=== PATIENT | male | born 1975 | race Caucasian/White ===

== ENCOUNTER 2020-09-02 12:54 | Emergency (ER) | payer OTHER ==
[2020-09-02 12:58] VITALS: BP 144/98; PULSE 96; RESP 16; TEMP 98
[2020-09-02] MEDS ORDERED: ORPHENADRINE 30 MG/ML 2 ML VIAL IM STA (13:20)
[2020-09-02] MEDS ORDERED: KETOROLAC 15 MG/ML 1 ML VIAL IM STA (13:20)
--- NOTE | 2020-09-02 13:29 | ED ---
Lower Extremity Injury HPI - General Chief Complaint: Extremity Injury, Lower Stated Complaint: L leg pain Source: patient, RN notes reviewed, old records reviewed Mode of arrival: wheelchair Limitations: no limitations - History of Present Illness Initial Comments: 45-year-old well-appearing white male presents to the emergency room with complaints of left knee pain after walking and picking up garbage for 8 hours yesterday. Patient states that the pain is behind his knee and hurts with flexion and palpation. 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 He was treated at [facility] and flown to and heart rate that time. Patient also has a history of hypertension. did not take his medications today. Patient states he did not try any Tylenol or Motrin today. He states he did take an epsom salt bath Yesterday with Relief of the Right Leg but Not the Left. Patient denies any trauma, is not on any chronic steroids, denies any fevers no numbness or tingling. Patient denies any drug use, no history of cancer . MD Complaint: other (Left knee pain since walking over 8 hours yesterday) -: days(s) (1) Injury: Knee: Left (Pain with flexion and behind the left knee) Type of Injury: other (Overuse, walking and picking up items yesterday for over 8 hours) Place: street/outdoors Severity scale (1-10): 10 Worsens With: movement, palpation (Palpation behind the knee) Context: other (Overuse) Associated Symptoms: ambulatory Treatments Prior to Arrival: other (epson salt Bath Yesterday) - Related Data Home Medications Medication Instructions Recorded Confirmed Chlorthalidone 25 mg PO DAILY 09/02/20 09/02/20 Ergocalciferol (Vitamin D2) 1,250 mcg PO Q30D 09/02/20 09/02/20 [Drisdol (50,000 Iu)] Losartan Potassium 100 mg PO DAILY 09/02/20 09/02/20 amLODIPine [Norvasc] 10 mg PO DAILY 09/02/20 09/02/20 hydrALAZINE HCL [Apresoline] 50 mg PO BID 09/02/20 09/02/20 Previous Rx's Medication Instructions Recorded Ibuprofen [Motrin] 600 mg PO Q8HR PRN #30 tab 09/02/20 Allergies Allergy/AdvReac Type Severity Reaction Status Date / Time pseudoephedrine HCl Allergy Swelling Verified 09/02/20 13:37 [[address] [facility]] Review of Systems ROS Statement: Those systems with pertinent positive or pertinent negative responses have been documented in the HPI. ROS Other: All systems not noted in ROS Statement are negative. Past Medical History Past Medical History: COPD, Hypertension History of Any Multi-Drug Resistant Organisms: None Reported Past Surgical History: Orthopedic Surgery Additional Past Surgical History / Comment(s): left leg surgery Past Psychological History: No Psychological Hx Reported Smoking Status: Never smoker Past Alcohol Use History: Occasional Past Drug Use History: None Reported General Exam Limitations: no limitations General appearance: alert, in no apparent distress Head exam: Present: atraumatic, normocephalic, normal inspection Eye exam: Present: normal appearance, PERRL, EOMI. Absent: scleral icterus, conjunctival injection, periorbital swelling ENT exam: Present: normal exam, normal oropharynx, mucous membranes moist Neck exam: Present: normal inspection, full ROM. Absent: tenderness, meningismus, lymphadenopathy Respiratory exam: Present: normal lung sounds bilaterally. Absent: respiratory distress, wheezes, rales, rhonchi, stridor, chest wall tenderness, accessory muscle use, decreased breath sounds Cardiovascular Exam: Present: regular rate, normal rhythm, normal heart sounds. Absent: systolic murmur, diastolic murmur, rubs, gallop, clicks GI/Abdominal exam: Present: soft, normal bowel sounds. Absent: distended, tenderness, guarding, rebound, rigid Extremities exam: Present: normal inspection, full ROM, normal capillary refill. Absent: tenderness, pedal edema, joint swelling, calf tenderness Left Hip exam: Present: normal inspection Upper Leg exam: Present: normal inspection (Lateral thigh scar from previous surgery) Knee exam: Present: normal inspection, tenderness (Tenderness behind the knee with no swelling), pain/laxity with valgus, pain/laxity with varus, full knee extension. Absent: swelling, abrasion, laceration, ecchymosis, deformity, crepitus, dislocation, erythema, effusion Lower Leg exam: Present: normal inspection. Absent: tenderness, swelling Ankle exam: Present: normal inspection, full ROM. Absent: tenderness Foot/Toe exam: Present: normal inspection, full ROM. Absent: tenderness Neurovascular tendon exam: Present: no vascular compromise, pulse deficit. Absent: abnormal cap refill, motor deficit, sensory deficit, tendon deficit, extremity cold to touch, pallor, foot drop Back exam: Present: normal inspection, full ROM. Absent: tenderness, CVA tenderness (R), CVA tenderness (L), muscle spasm, paraspinal tenderness, vertebral tenderness, rash noted Neurological exam: Present: alert, oriented X3, CN II-XII intact Psychiatric exam: Present: normal affect, normal mood Skin exam: Present: warm, dry, intact, normal color. Absent: rash, cyanosis, diaphoretic, erythema, petechiae, pallor, mottled Course Vital Signs 09/02/20 12:56 Temperature 98 F Pulse Rate 96 Respiratory 16 Rate Blood Pressure 144/98 O2 Sat by Pulse 100 Oximetry Medical Decision Making - Medical Decision Making Patient received relief from Norflex and Toradol is able to ambulate in room with minimal discomfort in his left knee. Patient denies fever. There is no lower extremity swelling noted. Pedal pulses are present and equal bilaterally. There is no palpable Amaya's cyst or lesion behind knee. Patient denies trauma states this started at the end of his shift yesterday after walking for 8 hours. There is no erythema or trauma noted to the knee or lower leg. Patient does have a significant surgical history of the left leg at age 19 hardware in his thigh and lower leg.. He believes that this is directly related to his excessive walking yesterday. Patient will follow up with his primary care doctor and return to the emergency room with worsening symptoms including fever, increased pain or swelling. Patient is agreeable to this plan of care. Case discussed with Dr. Ortiz Disposition Clinical Impression: Knee pain, left Disposition: HOME SELF-CARE Condition: Fair Instructions (If sedation given, give patient instructions): Knee Pain (ED) Additional Instructions: Return to the emergency room with worsening symptoms, including fever, swelling, inability to bear weight. Follow-up with the primary care doctor next week. Take Motrin every 6-8 hours for pain, rest, ice, elevate. Prescriptions: Ibuprofen [Motrin] 600 mg PO Q8HR PRN #30 tab PRN Reason: Pain Is patient prescribed a controlled substance at d/c from ED?: No Referrals: Bao Cary MD [Primary Care Provider] - 1-2 days Time of Disposition: 14:26
[2020-09-02] MEDS ORDERED: ACET/COD 300 MG/30 MG STARTER PACK 6 TAB BTL PO STA (14:26)
== END 2020-09-02 14:34 | disposition home or self-care (01) ==
LOC: EC 12:54
DX: M25.562 Pain in left knee (principal); I10 Essential (primary) hypertension; J44.9 Chronic obstructive pulmonary disease, unspecified; Z79.899 Other long term (current) drug therapy; Z79.1 Long term (current) use of non-steroidal anti-inflammatories (NSAID)
CPT/HCPCS: 96372 ×3; 99283 ×2; J2360; J1885

== ENCOUNTER 2021-06-28 09:48 | Inpatient (IN) | payer OTHER ==
[2021-06-28] MEDS ORDERED: hydrALAZINE HCL 20 MG/ML 1 ML VIAL IVP STA (10:42)
[2021-06-28 10:53] LABS: Basophils # (A) 0.1 k/uL (0-0.2); Basophils % (A) 1 %; Eosinophils # (A) 0.1 k/uL (0-0.7); Eosinophils % (A) 2 %; HCT 45.8 % (39.0-53.0); Lymphocytes # (A) 1.2 k/uL (1.0-4.8); Lymphocytes % (A) 15 %; MCH 30.4 pg (25.0-35.0); MCHC 32.8 g/dL (31.0-37.0); MCV 92.6 fL (80.0-100.0); Mean Platelet Volume 7.1; Monocytes # (A) 0.7 k/uL (0-1.0); Monocytes % (A) 9 %; Neutrophils % (A) 73 %; Platelet Count 285 k/uL (150-450); RBC 4.95 m/uL (4.30-5.90); RDW 11.4 % (11.5-15.5); WBC 8.2 k/uL (3.8-10.6)
--- NOTE | 2021-06-28 10:55 | XR ---
EXAMINATION TYPE: XR chest 2V DATE OF EXAM: 06/28/2021 COMPARISON: Chest x-ray July 24, 2014 HISTORY: Chest pain. TECHNIQUE: Frontal and lateral views of the chest are obtained. FINDINGS: There is no focal air space opacity, pleural effusion, or pneumothorax seen. The cardiac silhouette size is within normal limits. The osseous structures are intact. IMPRESSION: No acute process. No significant change from prior.
--- NOTE | 2021-06-28 11:04 | ED ---
Chest Pain HPI - General Chief Complaint: Chest Pain Stated Complaint: Chest pain Time Seen by Provider: 06/28/21 10:35 Source: patient Mode of arrival: ambulatory Limitations: no limitations - History of Present Illness Initial Comments: Patient is a 45-year-old male with a past medical history of hypertension and COPD who presents to the emergency department with a chief complaint of chest pain. Patient states he had 2 episodes of chest pain while driving to work this morning. The chest pain is left-sided and he describes it as feeling like a "ga s bubble". There is no radiation to the arms or jaw. Patient states the chest pain was associated with nausea and one episode of vomiting. He currently denies chest pain and nausea. Patient denies shortness of breath, palpitations, dizziness, and abdominal pain. Patient states he has felt this chest pain before when his blood pressure is high. Patient states he is noncompliant with his blood pressure medication and has not taken them in over 6 months. He states he does not take them because they were not working for his blood pressure. Patient denies a history of high cholesterol, diabetes, stroke, and family history of heart disease. He denies current tobacco use and states he uses alcohol occasionally. Patient states he drinks 2 cups of coffee each morning. - Related Data Home Medications Medication Instructions Recorded Confirmed Chlorthalidone 25 mg PO DAILY 09/02/20 09/02/20 Ergocalciferol (Vitamin D2) 1,250 mcg PO Q30D 09/02/20 09/02/20 [Drisdol (50,000 Iu)] Losartan Potassium 100 mg PO DAILY 09/02/20 09/02/20 amLODIPine [Norvasc] 10 mg PO DAILY 09/02/20 09/02/20 hydrALAZINE HCL [Apresoline] 50 mg PO BID 09/02/20 09/02/20 Previous Rx's Medication Instructions Recorded Ibuprofen [Motrin] 600 mg PO Q8HR PRN #30 tab 09/02/20 Allergies Allergy/AdvReac Type Severity Reaction Status Date / Time pseudoephedrine HCl Allergy Swelling Verified 06/28/21 09:59 [From [facility]] Review of Systems ROS Statement: Those systems with pertinent positive or pertinent negative responses have been documented in the HPI. ROS Other: All systems not noted in ROS Statement are negative. EKG Findings - EKG Comments: EKG Findings:: EKG taken at 10:04. Sinus rhythm. Ventricular rate 94. SC interval 161. QRS duration 97. QTC 399 Past Medical History Past Medical History: COPD, Hypertension History of Any Multi-Drug Resistant Organisms: None Reported Past Surgical History: Orthopedic Surgery Additional Past Surgical History / Comment(s): left leg surgery Past Psychological History: No Psychological Hx Reported Smoking Status: Never smoker Past Alcohol Use History: Occasional Past Drug Use History: None Reported General Exam Limitations: no limitations General appearance: alert, in no apparent distress Head exam: Present: atraumatic, normocephalic, normal inspection Eye exam: Present: normal appearance, PERRL, EOMI. Absent: scleral icterus, conjunctival injection, periorbital swelling Neck exam: Present: full ROM Respiratory exam: Present: normal lung sounds bilaterally. Absent: respiratory distress, wheezes, rales, rhonchi, stridor Cardiovascular Exam: Present: regular rate, normal rhythm, normal heart sounds. Absent: systolic murmur, diastolic murmur, rubs, gallop, clicks GI/Abdominal exam: Present: soft, normal bowel sounds. Absent: distended, tenderness, guarding, rebound, rigid Back exam: Present: normal inspection Neurological exam: Present: alert, oriented X3, CN II-XII intact Psychiatric exam: Present: normal affect, normal mood Skin exam: Present: warm, dry, intact, normal color. Absent: rash Course Vital Signs 06/28/21 09:55 Temperature 97.1 F L Pulse Rate 80 Respiratory 18 Rate Blood Pressure 198/120 O2 Sat by Pulse 100 Oximetry Chest Pain MDM - MDM This is a 45-year-old male who presents with 2 episodes of chest pain this morn ing. Thorough history and examination were performed. Blood pressure is 198/120. Patient is well-appearing and in no apparent distress. Patient currently has no symptoms including chest pain, shortness of breath, and nausea. EKG shows sinus rhythm with ST depression in lead III. Repeat blood pressure was 177/111. Patient given oral dose of amlodipine. Troponin is 0.428. Aspirin and heparin were initiated. Case discussed with Dr. Cary. Patient will be admitted to his service with cardiology consult. Results discussed patient who verbalizes understanding and is agreeable to this plan. Dr. Mcmillan is my attending. Critical Care Time Critical Care Time: Yes Total Critical Care Time: 32 Disposition Clinical Impression: NSTEMI (non-ST elevated myocardial infarction) Disposition: ADMITTED IP TO THIS HOSP Condition: Fair Referrals: Bao Cary MD [Primary Care Provider] - 1-2 days Decision Time: 12:31
[2021-06-28 11:09] LABS: ALT 27 U/L (4-49); AST 26 U/L (17-59); African American GFR (CKD) >90 (>60 ml/min/1.73 sqM); Albumin 4.5 g/dL (3.5-5.0); Alkaline Phosphatase 70 U/L (38-126); Anion Gap 12 mmol/L; Blood Urea Nitrogen 9 mg/dL (9-20); Calcium 8.9 mg/dL (8.4-10.2); Carbon Dioxide 25 mmol/L (22-30); Chloride 97 mmol/L (98-107); Glucose 131 mg/dL (74-99); Magnesium 2.2 mg/dL (1.6-2.3); Non-African American GFR(CKD) >90 (>60 ml/min/1.73 sqM); Partial Thromboplastin Time 27.3 sec (22.0-30.0); Potassium 3.7 mmol/L (3.5-5.1); Prothrombin Time 10.8 sec (9.0-12.0); Sodium 134 mmol/L (137-145); Total Bilirubin 1.1 mg/dL (0.2-1.3)
[2021-06-28] MEDS ORDERED: amLODIPine 10 MG TAB PO STA (11:19)
[2021-06-28] MEDS ORDERED: ASPIRIN 325 MG TAB PO STA (11:39)
[2021-06-28] MEDS ORDERED: HEPARIN SODIUM 1,000 UN/ML (10ML VL) IV PRN (11:45)
[2021-06-28] MEDS ORDERED: HEPARIN SODIUM 1,000 UN/ML (10ML VL) IV ONE (11:45)
[2021-06-28] MEDS: HEPARIN SOD,PORK IN 0.45% NACL 25,000 UNIT in 0.45% NACL 1 250ML.BAG IV SCH (12:12)
[2021-06-28] MEDS ORDERED: NALOXONE 0.4 MG/ML 1 ML VIAL IV PRN (12:27)
[2021-06-28] MEDS ORDERED: NITROGLYCERIN SL TABS 0.4 MG TAB SUBLINGUAL STA (13:46)
[2021-06-28] MEDS: METOPROLOL TARTRATE 50 MG TAB PO SCH ×2 (13:52→20:10)
--- NOTE | 2021-06-28 14:02 | P.CRDCN ---
History of Present Illness History of present illness: HISTORY OF PRESENTING ILLNESS This is a pleasant 45-year-old male past medical history significant for hypertension COPD. 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 We have been asked to see in consultation for chest pain and elevated troponin. Presents emergency department with complaints of chest pain. Patient began to have chest pain this morning getting up for work. 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 He had 2more episodes of chest pain while driving to work and decided to get evaluated. The chest pain is left-sided and he describes it as feeling like a "gas bubble". He denies radiation. It is non-exertional. He did have associated nausea and one episode of vomiting. He currently denies chest pain and nausea. Patient denies shortness of breath, palpitations, dizziness, lightheadedness and abdominal pain. Patient states he is noncompliant with his blood pressure medication and has not taken them in over 6 months. He stopped going to see his PCP Dr. Cary. Patient denies a history of high cholesterol, CAD, [place], Stroke or Diabetes. Denies family history of heart disease. He denies current tobacco use and states he uses alcohol occasionally. DIAGNOSTICS EKG reveals Sinus rhythm HR 94, ST depression in lead III, LVH, ST-T wave abnormalities in leads I and aVL. No prior EKG to compare Chest xray no acute cardiopulmonary process Laboratory reviewed, CBC unremarkable, initial troponin 0.42, sodium 134, potassium 3.7, BUN 9, serum creatinine 0.94, magnesium 2.2 Current home medications include none. Patient stopped taking all his cardiac medications. REVIEW OF SYSTEMS At the time of my exam: CONSTITUTIONAL: Denies fever or chills. CARDIOVASCULAR: Denies chest pain, shortness of breath, orthopnea, PND or palpitations. RESPIRATORY: Denies cough. GASTROINTESTINAL: Denies abdominal pain, diarrhea, constipation, nausea or vomiting. MUSCULOSKELETAL: Denies myalgias. NEUROLOGIC: Denies numbness, tingling, headache or weakness. ENDOCRINE: Denies fatigue, weight change, polydipsia or polyurina. GENITOURINARY: Denies burning, hematuria or urgency with micturation. HEMATOLOGIC: Denies history of anemia or bleeding. PHYSICAL EXAMINATION Blood pressure 170/116, heart rate 92, afebrile. Saturations 100% on room air CONSTITUTIONAL: No apparent distress. HEENT: Head is normocephalic. Pupils are equal, round. Sclerae anicteric. Mucous membranes of the mouth are moist. No JVD. No carotid bruit. CHEST EXAMINATION: Lungs are clear to auscultation. No chest wall tenderness is noted on palpation or with deep breathing. HEART EXAMINATION: Regular rate and rhythm. S1, S2 heard. No murmurs, gallops or rub. ABDOMEN: Soft, nontender. Positive bowel sounds. EXTREMITIES: 2+ peripheral pulses, no lower extremity edema and no calf tenderness. SKIN: warm, dry NEUROLOGIC EXAMINATION: Patient is awake, alert and oriented x3. ASSESSMENT Chest pain Elevated troponin, rule out acute coronary syndrome Uncontrolled hypertension History of hypertension History of COPD PLAN IV heparin Sublinqual nitro and apply nitro paste Trend troponins Repeat EKG Obtain 2D echocardiogram and doppler study to assess cardiac structure and function. Echo reviewed at bedside by Dr. Bird no wall motion abnormalities, will await full report. Lipid panel Aspirin, statin Metoprolol tartrate 50mg BID NPO after midnight pending above workup. Thank you kindly for this consultation. Nurse practitioner note has been reviewed by physician. Signing provider agrees with the documented findings, assessment, and plan of care. Past Medical History Past Medical History: COPD, Hypertension History of Any Multi-Drug Resistant Organisms: None Reported Past Surgical History: Orthopedic Surgery Additional Past Surgical History / Comment(s): left leg surgery Past Psychological History: No Psychological Hx Reported Smoking Status: Never smoker Past Alcohol Use History: Occasional Past Drug Use History: None Reported - Past Family History Father Family Medical History: COPD Additional Family Medical History / Comment(s): Double lung tranplant Mother Family Medical History: No Reported History Additional Family Medical History / Comment(s): Mother is healthy Medications and Allergies Home Medications Medication Instructions Recorded Confirmed Type No Known Home Medications 06/28/21 06/28/21 History Allergies Allergy/AdvReac Type Severity Reaction Status Date / Time pseudoephedrine HCl Allergy Rash/Hives Verified 06/28/21 13:02 [From Sudafed] ABDI Inhibitors AdvReac Cough Verified 06/28/21 13:02 Physical Exam Vitals: Vital Signs Temp Pulse Resp BP Pulse Ox 06/28/21 12:15 92 18 178/116 100 06/28/21 09:55 97.1 F L 80 18 198/120 100 Intake and Output 06/27/21 06/28/2122 22:59 06:59 14:59 Other: Weight 79.379 kg Results 06/28/21 10:41 06/28/21 10:41 Cardiac Enzymes 06/28/21 06/28/21 Range/Units 10:41 10:41 AST 26 (17-59) U/L Troponin I 0.428 H* (0.000-0.034) ng/mL Coagulation 06/28/21 Range/Units 10:41 PT 10.8 (9.0-12.0) sec APTT 27.3 (22.0-30.0) sec CBC 06/28/21 Range/Units 10:41 WBC 8.2 (3.8-10.6) k/uL RBC 4.95 (4.30-5.90) m/uL Hgb 15.0 (13.0-17.5) gm/dL Hct 45.8 (39.0-53.0) % Plt Count 285 (150-450) k/uL Comprehensive Metabolic Panel 06/28/21 Range/Units 10:41 Sodium 134 L (137-145) mmol/L Potassium 3.7 (3.5-5.1) mmol/L Chloride 97 L (98-107) mmol/L Carbon Dioxide 25 (22-30) mmol/L BUN 9 (9-20) mg/dL Creatinine 0.94 (0.66-1.25) mg/dL Glucose 131 H (74-99) mg/dL Calcium 8.9 (8.4-10.2) mg/dL AST 26 (17-59) U/L ALT 27 (4-49) U/L Alkaline Phosphatase 70 (38-126) U/L Total Protein 8.0 (6.3-8.2) g/dL Albumin 4.5 (3.5-5.0) g/dL Current Medications Generic Name Dose Route Start Last Admin Trade Name Freq PRN Reason Stop Dose Admin Heparin Sodium (Porcine) 0 unit 06/28/21 11:45 Heparin Sodium 1,000 Un/Ml (10ml Vl) IV PER PROTOCOL PRN Low PTT Protocol Heparin Sodium/Sodium Chloride 250 mls @ 9.525 mls/hr 06/28/21 11:45 06/28/21 12:12 25,000 unit/ Sodium Chloride IV 12 units/kg/hr .Q24H LISA 9.525 mls/hr Administration Protocol 12 UNITS/KG/HR Naloxone HCl 0.2 mg 06/28/21 12:27 Naloxone 0.4 Mg/Ml 1 Ml Vial IV Q2M PRN Opioid Reversal Intake and Output 06/27/21 06/28/21 06/28/21 22:59 06:59 14:59 Other: Weight 79.379 kg Patient Weight 06/29/21 06:59 Weight 79.379 kg 06/28/21 10:41 06/28/21 10:41
[2021-06-28] MEDS: NITROGLYCERIN OINT 1 INCH/GM PACKET TOPICAL SCH ×3 (14:25→23:18)
[2021-06-28] MEDS ORDERED: ACETAMINOPHEN TAB 325 MG TAB PO PRN (17:17)
--- NOTE | 2021-06-28 18:14 | ECHOF ---
Referral Reason:chest pain, elevated troponin MEASUREMENTS -------- HEIGHT: 177.8 cm WEIGHT: 79.4 kg BP: 153/112 RVIDd: 2.7 cm (< 3.3) IVSd: 1.2 cm (0.6 - 1.1) LVIDd: 4.2 cm (3.9 - 5.3) LVPWd: 1.2 cm (0.6 - 1.1) IVSs: 1.8 cm LVIDs: 2.8 cm LVPWs: 1.6 cm LA Diam: 2.7 cm (2.7 - 3.8) LAESV Index (A-L): 16.54 ml/m Ao Diam: 3.6 cm (2.0 - 3.7) AV Cusp: 2.1 cm (1.5 - 2.6) MV EXCURSION: 12.755 mm (> 18.000) MV EF SLOPE: 49 mm/s (70 - 150) EPSS: 0.8 cm MV E Heraclio: 0.68 m/s MV DecT: 205 ms MV A Heraclio: 0.96 m/s MV E/A Ratio: 0.71 FINDINGS -------- Sinus rhythm. This was a technically adequate study. The left ventricular size is normal. There is borderline concentric left ventricular hypertrophy. Overall left ventricular systolic function is normal with, an EF between 55 - 60 %. The right ventricle is normal in size. Normal LA size by volume 22+/-6 ml/m2. The right atrial size is normal. Interatrial and interventricular septum intact. The aortic valve is trileaflet, and appears structurally normal. No aortic stenosis or regurgitation. The mitral valve is normal. Mild mitral regurgitation is present. The tricuspid valve appears structurally normal. Mild tricuspid regurgitation present. Unable to estimate RVSP due to inadequate TR jet spectral doppler profile. There is no pulmonic regurgitation present. The aortic root size is normal. Normal inferior vena cava with normal inspiratory collapse consistent with estimated right atrial pre ssure of 5 mmHg. There is no pericardial effusion. CONCLUSIONS -------- 1. There is borderline concentric left ventricular hypertrophy. 2. Overall left ventricular systolic function is normal with, an EF between 55 - 60 %. 3. Normal LA size by volume 22+/-6 ml/m2. 4. The aortic valve is trileaflet, and appears structurally normal. No aortic stenosis or regurgitati on. 5. Mild mitral regurgitation is present. 6. Mild tricuspid regurgitation present. 7. There is no pericardial effusion. MACHINE OPERATOR HOP WORKER: Catarina Swanson RDCS
[2021-06-28 22:58] LABS: LDL Cholesterol,Calculated 108.1 mg/dL (0.0-131.0); VLDL Calculation 11.06 mg/dL (5.00-40.00)
[2021-06-29] MEDS: NITROGLYCERIN OINT 1 INCH/GM PACKET TOPICAL SCH ×4 (06:53→23:39)
[2021-06-29] MEDS: METOPROLOL TARTRATE 50 MG TAB PO SCH ×2 (08:23→21:51)
[2021-06-29] MEDS: ASPIRIN 81 MG PO SCH (08:23)
[2021-06-29] MEDS: ATORVASTATIN 40 MG TAB PO SCH (08:23)
[2021-06-29 08:37] LABS: Basophils % (A) 0 %; Eosinophils % (A) 1 %; HCT 46.3 % (39.0-53.0); HGB 15.3 gm/dL (13.0-17.5); Lymphocytes # (A) 1.4 k/uL (1.0-4.8); Lymphocytes % (A) 16 %; MCH 31.7 pg (25.0-35.0); MCHC 33.1 g/dL (31.0-37.0); MCV 95.5 fL (80.0-100.0); Mean Platelet Volume 7.1; Monocytes # (A) 0.5 k/uL (0-1.0); Monocytes % (A) 6 %; Neutrophils # (A) 6.5 k/uL (1.3-7.7); Neutrophils % (A) 76 %; Platelet Count 325 k/uL (150-450); RBC 4.84 m/uL (4.30-5.90); RDW 11.5 % (11.5-15.5); WBC 8.6 k/uL (3.8-10.6)
[2021-06-29 08:51] LABS: African American GFR (CKD) >90 (>60 ml/min/1.73 sqM); Anion Gap 13 mmol/L; Blood Urea Nitrogen 11 mg/dL (9-20); Calcium 9.3 mg/dL (8.4-10.2); Carbon Dioxide 25 mmol/L (22-30); Chloride 98 mmol/L (98-107); Glucose 91 mg/dL (74-99); Non-African American GFR(CKD) >90 (>60 ml/min/1.73 sqM); Potassium 3.7 mmol/L (3.5-5.1); Sodium 136 mmol/L (137-145)
[2021-06-29 08:58] LABS: Partial Thromboplastin Time 31.2 sec (22.0-30.0); Prothrombin Time 10.7 sec (9.0-12.0)
[2021-06-29] MEDS ORDERED: ATORVASTATIN 80 MG TAB PO SCH (09:00)
--- NOTE | 2021-06-29 10:20 | PN ---
PROGRESS NOTE Mr. Pelletier had suffered from an acute ici-KS-yrjvditek TX. He is very comfortable. He is pain-free. His EKG today reveals slightly precordial ST-T changes. Troponin has come down. Echo revealed preserved systolic function. Patient is on a heparin drip, beta blockers, aspirin and statins. I am going to perform cardiac catheterization from right radial approach. I explained to the patient and his rationale, risks, benefits and options. They understand all details and wish to proceed with the procedure. MMTRUEL / IJN: [id number] /
[2021-06-29] MEDS: HEPARIN SOD,PORK IN 0.45% NACL 25,000 UNIT in 0.45% NACL 1 250ML.BAG IV SCH (11:56)
[2021-06-29] MEDS ORDERED: HEPARIN SODIUM 1,000 UN/ML (10ML VL) ONE (12:31)
[2021-06-29] MEDS ORDERED: VERAPAMIL 2.5 MG/ML 2 ML AMP ONE (12:31)
[2021-06-29] MEDS ORDERED: LIDOCAINE 1% INJ 10MG/ML (20 ML MDV) ONE (12:31)
[2021-06-29] MEDS ORDERED: MIDAZOLAM 2 MG/2 ML VIAL IV ONE (12:39)
[2021-06-29] MEDS ORDERED: SODIUM CHLORIDE 0.9% 1,000 ML IV ONE (12:39)
[2021-06-29] MEDS ORDERED: LIDOCAINE 1% INJ 10MG/ML (20 ML MDV) SQ ONE (12:41)
[2021-06-29] MEDS ORDERED: fentaNYL (PF) 50 MCG/ML 2 ML AMP ONE (12:42)
[2021-06-29] MEDS ORDERED: fentaNYL (PF) 50 MCG/ML 2 ML AMP IV ONE (12:44)
[2021-06-29] MEDS ORDERED: VERAPAMIL SYRINGE (5 MG/10 ML) INTRAARTER ONE (12:45)
[2021-06-29] MEDS ORDERED: HEPARIN SODIUM 1,000 UN/ML (10ML VL) IV ONE (12:46)
[2021-06-29] MEDS ORDERED: IOPAMIDOL-370 100ML BTL INJ ONE (13:00)
[2021-06-29] MEDS ORDERED: IOPAMIDOL-370 50ML BTL INJ ONE (13:02)
[2021-06-29] MEDS ORDERED: SODIUM CHLORIDE 0.9% 1,000 ML IV SCH (14:15)
--- NOTE | 2021-06-29 17:26 | HP ---
HISTORY AND PHYSICAL CHIEF COMPLAINT: Chest pain. HISTORY OF PRESENT ILLNESS: This is the first known admission for this pleasant 45-year-old white male. He has a history of hypertension. He presented to the emergency room with chest pain with elevated troponin and an unremarkable EKG. He was admitted as an NSTEMI. REVIEW OF SYSTEMS: He has had no syncope, headache, shortness of breath, abdominal pain, vomiting, diarrhea, urinary complaints, nocturia, frequency, incontinence, diabetes, etc. Past medical history, family history, and personal and social histories reveal that he is had a history of hypertension. He is ALLERGIC TO ABDI INHIBITORS AND SUDAFED. He has never smoked and he drinks occasionally. He has been on medications for hypertension in the past, including hydralazine, Cozaar, amlodipine and chlorthalidone. However, when he came into the hospital this time he was on no medications and his blood pressure was elevated at 198/120. PHYSICAL EXAMINATION: Blood pressure 198/120 with a pulse of 88 and regular, respirations of 33, and he is afebrile. In general he appeared to be in no acute distress. Skin was dry. Head, ears, eyes, nose, mouth and throat were normal. Neck veins were not distended. Thyroid was not enlarged. Chest was clear. Cardiac exam demonstrated normal sinus rhythm with no murmurs or extra sounds. Abdomen was soft and nontender without any visceromegaly or masses. Bowel sounds present. Extremities were normal. Neurologically he was intact. He is admitted to the hospital with the diagnoses: 1. Tla-BO-ljkpmnity myocardial infarction. 2. Hypertension. PLAN: 1. Bedrest. 2. IV fluids. 3. Serial EKGs and enzymes. 4. Consult Cardiology. MMODL / IJN: [id number] /
--- NOTE | 2021-06-29 17:29 | PN ---
PROGRESS NOTE DATE OF SERVICE: 06/29/2021 CHIEF COMPLAINT: NSTEMI. 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 REVIEW OF SYSTEMS: He has had no chest pain or headache. He has had no abdominal pain or nausea. PHYSICAL EXAMINATION: His chest is clear. Cardiac exam is normal. Abdomen is soft, nontender. IMPRESSION: 1. Hkm-HC-[id number] myocardial infarction. 2. Hypertension. PLAN: Cardiac cath today. MMODL / IJN: [id number] /
--- NOTE | 2021-06-29 17:44 | CC ---
CARDIAC CATHETERIZATION REPORT DATE OF SERVICE: 06/29/2021 PROCEDURE: Left heart catheterization and coronary angiography. PERFORMED BY: Dr. Gabbie Bird. Moderate conscious sedation time was 25 minutes. Patient was administered Versed. Oxygen saturation and EKG were monitored closely. CLINICAL INFORMATION: Mr. 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 He came into the hospital with chest pain suggestive of angina and also had a mild troponin elevation suggestive of non-ST- elevation MD. Precordial leads revealed mild J-point prominence. Given his presentation and symptomatology, he was advised cardiac cath after due discussion regarding risks, benefits and options. PROCEDURE NOTE: Under local anesthesia and strict aseptic precautions, a 6-Ukrainian introducer was placed in the right radial artery. Using JL3.5 and JR4 catheters I performed coronary angiography, and the same catheter was used to check LV pressures. I then used a Nirmal catheter to just check and see if there was another ectopic right coronary artery. Subsequently the sheath was taken out and TR band applied as per protocol. Saturation in the fingers of the right hand was 96%. Patient tolerated the procedure well without complications. CARDIAC CATHETERIZATION FINDINGS: The left ventricular end-diastolic pressure was 8 to 9 mmHg without any gradient across the aortic valve. CORONARY ANGIOGRAPHY FINDINGS: RIGHT CORONARY ARTERY: Nondominant vessel gives off an acute marginal branch and then continues. After the acute marginal branch there is a 90% stenosis and beyond the stenotic area the caliber of the vessel is quite small and the distribution is also small. The nondominant RCA therefore has a mid 90% lesion with limited amount of myocardium being supplied by it. LEFT MAIN CORONARY ARTERY: Short, patent vessel free of significant disease. It bifurcates into LAD and circumflex. LEFT ANTERIOR DESCENDING CORONARY ARTERY: Good-caliber vessel extends along the anterior wall, gives off septal and diagonal branches, runs all the way to the apex, has no significant disease. Only minor irregularities were noted. LEFT POSTERIOR CIRCUMFLEX CORONARY ARTERY: Technically a dominant vessel. It gives off a first obtuse marginal and distally bifurcates into PDA and PLV, both of which supply a fair amount of myocardium. No significant disease noted. LEFT VENTRICULOGRAM: Left ventriculogram was not performed. FINAL IMPRESSION: This patient has a left-dominant system. There is a 90% mid RCA stenosis and this is a small nondominant RCA and I believe this is the culprit lesion. The left system and left main are free of significant disease. Filling pressures are normal. RECOMMENDATIONS: Findings were discussed with the patient and his . I am recommending that we will pursue medical therapy with risk factor modification. Advised to be compliant with medications. I will discharge him tomorrow and follow up in the office. No intervention is necessary, and the nondominant RCA stenosis will be treated medically. Discussed with the patient and his . MMODL / IJN: [id number] /
[2021-06-29] MEDS: HEPARIN SODIUM,PORCINE/PF 5,000 UNIT/0.5 ML SYRINGE SQ SCH (21:51)
[2021-06-30] MEDS ORDERED: SODIUM CHLORIDE 0.9% 1,000 ML IV SCH (02:15)
[2021-06-30] MEDS: NITROGLYCERIN OINT 1 INCH/GM PACKET TOPICAL SCH ×2 (06:27→12:16)
[2021-06-30] MEDS ORDERED: CLOPIDOGREL 75 MG TAB PO SCH (09:00)
[2021-06-30] MEDS: ATORVASTATIN 40 MG TAB PO SCH (09:49)
[2021-06-30] MEDS: METOPROLOL TARTRATE 50 MG TAB PO SCH (09:49)
[2021-06-30] MEDS: ASPIRIN 81 MG PO SCH (09:49)
--- NOTE | 2021-06-30 10:12 | PN ---
PROGRESS NOTE Mr. Pelletier suffered from an acute [id number] LA, was found to have a 90% stenosis in an acute marginal branch of a non-dominant RCA. system was open. LV function was well preserved. Findings were reviewed with the patient and his . I am recommending he can be discharged on aspirin, Plavix, beta sada and atorvastatin. I will see him in the office in one week. Right radial site is clean and dry with a good pulse. Vitals are stable. No JVD. S1-S2 heard normally. Lungs are clear. Abdomen and lower extremity exam unchanged. Patient can be discharged today. Discharge instructions regarding activity, diet and medications were given. MMODL / IJN: [id number] /
[2021-06-30 11:11] VITALS: RESP 18; TEMP 97.6
[2021-06-30] MEDS: HEPARIN SODIUM,PORCINE/PF 5,000 UNIT/0.5 ML SYRINGE SQ SCH (12:16)
[2021-06-30 15:10] VITALS: BP 136/81; PULSE 76
--- NOTE | 2021-07-01 21:14 | DS ---
DISCHARGE SUMMARY DATE OF SERVICE: 06/30/2021 CHIEF COMPLAINT: Chest pain. HISTORY OF PRESENT ILLNESS AND PHYSICAL EXAMINATION: Details of this man's history and physical can be found in the initial workup. LABORATORY STUDIES: While he was in the hospital he had laboratory studies, details of which can be found in the laboratory section of his chart. COURSE IN THE HOSPITAL: After admission he was placed on bedrest, started on intravenous fluids. Troponins were elevated. The day after he came in, he was taken to the electronic lab technician, where he was found to have a narrowing of the mid RCA not requiring stenting. He was doing well. He was not having any further chest pain or shortness of breath. It was felt that he could be discharged. He will go home on light activity about the house and medications prescribed by Cardiology. We will follow up with him in a day or two. FINAL DIAGNOSIS: 1. Acute rff-OP-selkdoele myocardial infarction. 2. Hypertensive crisis. OPERATION: Cardiac catheterization. CONSULTATION: Cardiology. He is improved. MMTRUEL / KATYAN: [id number] /
== END 2021-06-30 15:44 | disposition home or self-care (01) | DRG 281 ==
LOC: EC 09:48 → 3SCARD 13:17
PROVIDERS: ADMIT Family Medicine; ATTEND Family Medicine
PROC: B2111ZZ Fluoroscopy of Multiple Coronary Arteries using Low Osmolar Contrast (ICD-10-PCS; principal; 2021-06-29 12:15)
PROC: 4A023N7 Measurement of Cardiac Sampling and Pressure, Left Heart, Percutaneous Approach (ICD-10-PCS; principal; 2021-06-29 12:15)
DX: I21.4 Non-ST elevation (NSTEMI) myocardial infarction (principal); I16.9 Hypertensive crisis, unspecified; I10 Essential (primary) hypertension; I25.10 Atherosclerotic heart disease of native coronary artery without angina pectoris; J44.9 Chronic obstructive pulmonary disease, unspecified; T44.7X6A Underdosing of beta-adrenoreceptor antagonists, initial encounter; Z28.311 Partially vaccinated for COVID-19; Z91.128 Patient's intentional underdosing of medication regimen for other reason; Z98.890 Other specified postprocedural states; Z88.8 Allergy status to other drugs, medicaments and biological substances; Z82.5 Family history of asthma and other chronic lower respiratory diseases
CPT/HCPCS: 36415; 71046; 80048; 80053; 80061; 83735; 84484; 85025; 85610; 85730; 93005; 93306; 93458; 96374; 96375; 99291

== ENCOUNTER → 2021-10-15 | Outpatient (CLI) | payer OTHER ==
--- NOTE | 2021-10-15 09:20 | US ---
EXAMINATION TYPE: US renal artery duplex completa DATE OF EXAM: 10/15/2021 COMPARISON: NONE CLINICAL HISTORY: I10 hypertension. Uncontrolled HTN. MEASUREMENTS: RENAL SIZE: Rt Kidney: 11.4 x 6.5 x 6.4 cm Lt Kidney: 11.5 x 5.9 x 6.0 cm RESISTANCE INDEX Right: 0.58 Left: 0.58 RA/AO RATIO (< 3.5 ) Right: 3.3 Left: 3.4 RA VELOCITY ( < 180 cm/s) Right: 181 Left: 181 Aorta and renal unremarkable. There is borderline bilateral renal artery velocities at 181 cm/s. Ther e is also color aliasing demonstrated on color doppler imaging , which can be indicative of stenosis. Borderline RA/AO ratios also, which probably warrants further workup with CTA or MRA. IMPRESSION: Minimal/borderline renal artery stenosis bilaterally by peak systolic velocity and a renal artery to aorta ratio at the upper limits of normal.
== END | disposition home or self-care (01) ==
LOC: RADUSWWP 07:43
PROVIDERS: ATTEND Family Medicine
DX: I70.1 Atherosclerosis of renal artery (principal)
CPT/HCPCS: 93975

== ENCOUNTER → 2021-11-20 | Outpatient (CLI) | payer OTHER ==
[2021-11-20 15:05] LABS: ALT 34 U/L (10-49); AST 22 U/L (14-35); Chol/HDL Ratio 3.82 Ratio; LDL Cholesterol,Calculated 136.7 mg/dL (0.0-131.0)
== END | disposition home or self-care (01) ==
LOC: LABWHC1 08:41
PROVIDERS: ATTEND Internal Medicine Interventional Cardiology
DX: E78.5 Hyperlipidemia, unspecified (principal)
CPT/HCPCS: 36415; 80061; 84450; 84460